=== PATIENT | male | born 1990 | race Caucasian/White ===

== ENCOUNTER 2023-10-17 22:50 | Emergency (ER) | payer SELFPAY ==
[~2023-10-17] VITALS: Ht 162.6 cm; Wt 85.0 kg
[2023-10-17 23:18] VITALS: O2SAT 98
[2023-10-18] MEDS ORDERED: IBUP-2029 MT (03:42)
[2023-10-18] MEDS ORDERED: AMOX-494 MT (03:42)
[2023-10-18] MEDS ORDERED: MED4 MT (03:42)
[2023-10-18] MEDS ORDERED: AMOXICILLIN 500 MG CAPSULE PO ONE (03:45)
[2023-10-18] MEDS ORDERED: IBUPROFEN 600MG TABLET PO ONE (03:45)
[2023-10-18 04:19] VITALS: BP 132/83
[2023-10-18 04:29] VITALS: PULSE 99; RESP 20; TEMP 98.6
== END 2023-10-18 04:32 | disposition home or self-care (01) ==
LOC: ER 22:50
DX: H66.92 Otitis media, unspecified, left ear (principal); I10 Essential (primary) hypertension
CPT/HCPCS: 99283; Z7610